=== PATIENT | female | born 1980 | race Caucasian/White ===

== ENCOUNTER 2021-11-30 06:20 | Inpatient (IN) | payer BC ==
[2021-11-30] VITALS (33 sets, daily range): BP systolic 110–146; BP diastolic 66–92; PULSE 57–109; TEMP 97.4–98.3
[~2021-11-30] VITALS: Ht 162.6 cm; Wt 87.3 kg
[~2021-11-30 06:20] MED LIST: MOTRIN 600600 MG/TAB PO; PRENATAL1 TA1 PO
--- NOTE | 2021-11-30 06:45 | NUR ---
PT AMBULATORY TO UNIT FOR SCHEDULED IOL OF TWINS. REPORTS IRREGULAR CONTRACTIONS THROUGHOUT THE NIGHT, BUT HAVE STOPPED THIS MORNING. REPORTS POSITIVE MOVEMENT, DENIES LOF. PT ORIENTED TO LABOR ROOM, PLACED IN A CLEAN GOWN, AND DISCUSSING POC. EFM TRACING CATEGORY 1 STRIP ON BOTH BABIES UPON ARRIVAL. NO CONTRACTIONS AT THIS TIME. WILL CONTINUE WITH POC PER ORDERS.
--- NOTE | 2021-11-30 07:20 | NUR ---
SVE 2-3/50/-2 PER THIS RN. CERVIX THICK AND SLIGHTLY POSTERIOR UPON THIS ASSESSMENT. VERTEX PRESENTATION OF BABY A FELT WITH SVE.
[2021-11-30 07:51] LABS: HEMATOCRIT 40.9 % (37.0-47.0); HEMOGLOBIN 14.3 g/dl (12.5-16.0); MEAN CELL VOLUME 91 fl (80.0-100.0); MEAN CORPUSCULAR HEMOGLOBIN 32 pg (27-31); MEAN CORPUSCULAR HGB CONC 35 g/dl (33.0-37.0); PLATELET COUNT 184 K/mm3 (130-400); RED BLOOD COUNT 4.48 M/mm3 (4.10-5.30); REDCELL DISTRIBUTION WIDTH-CV 12.8 % (11.5-14.5)
[2021-11-30 08:17] LABS: BAND 3 % (0-10); LYMPHOCYTE 11 % (20.0-51.0); NEUTROPHILS 82 % (42.0-75.2)
[2021-11-30 08:18] LABS: PLATELET ESTIMATE NORMAL (NORMAL)
--- NOTE | 2021-11-30 08:30 | NUR ---
DR ABBOTT AT BEDSIDE, DIFFICULTY TRACING EFM DUE TO POSITIONING. THIS NURSE AND DUKE RN AT BEDSIDE ADJUSTING EFM TO ATTEMPT TO MONITOR BABY B. DISCUSSING POC. EDUCATES PT THAT AFTER THIS MORNING PROCEDURE, HE WILL RETURN TO AROM BABY A AND PLACE AN FSE IN ORDER TO ASSIST IN BEING ABLE TO BETTER MONITOR EFM/TOCO. PITOCIN INFUSING AT 8MU, INTERMITTENT TRACING CATEGORY 1 EFM. VORB TO KEEP PITOCIN AT 8MU UNTIL RETURNS AFTER ANOTHER PROCEDURE. PT REPORTS SHE IS ABLE TO FEEL CONTRACTIONS, BUT NOTHING CONSISTENT OR PAINFUL YET. WILL CONTINUE WITH POC PER ORDERS.
[2021-11-30] MEDS ORDERED: FLAGYL500 MG (09:02)
[2021-11-30] MEDS ORDERED: PREDNISONE20 MG PO (09:02)
[2021-11-30] MEDS ORDERED: ZYRTEC 10MG10 MG PO (09:05)
[2021-11-30] MEDS ORDERED: NATURAL IRON65 MG (09:10)
--- NOTE | 2021-11-30 09:32 | NUR ---
0645 PT AMBULATORY TO UNIT FOR IOL. AND MOTHER PRESENT AND SUPPORTIVE. MOM CHANGED INTO NEW GOWN AND IN BED AT THIS TIME. REPORTS POSITIVE MOVEMENT, NO LEAKING OF FLUID, AND STATES SHE HAD CTX THROUGHOUT THE NIGHT "ABOUT 7 MINUTES APART" BUT HAS NOT HAD ANY THIS MORNING. IV, LABS DRAWN, EFM STARTED AT THIS TIME. IV RUNNING LR AND PEN G DUE TO GBS+. PT CHECKED BY VIRGINIA KLEIN. SVE 2-/-2. WILL CONTINUE TO MONITOR.
--- NOTE | 2021-11-30 10:31 | NUR ---
1015: PT TO SITTING POSITION ON EDGE OF BED FOR EPIDURAL PLACEMENT. LR BOLUS INFUSING PER PROTOCOL. VITAL SIGNS STABLE. EFM TRACING CATEGORY 1 FOR BABY #1 & BABY #2. 1031: TEST DOSE PER ELIZA ORELLANA. PT TOLERATED PROCEDURE WELL.
--- NOTE | 2021-11-30 10:57 | NUR ---
AT BEDSIDE. BEDSIDE ULTRASOUND PERFORMED, VERTEX/VERTEX PRESENTATION CONFIRMED. SVE /-2. 1057: AROM WITH CLEAR FLUID, PT TOLERATED PROCEDURE WELL. EFM CATEGORY 1 TRACING FOR BABY A AND BABY B AT THIS TIME. FSE PLACED FOLLOWING AROM PER . VORB TO CONTINUE INCREASING PITOCIN PER PROTOCOL UNTIL A MAX OF 20MU.
--- NOTE | 2021-11-30 10:57 | NUR ---
AT BEDSIDE. SVE /-2. 1057: AROM WITH CLEAR FLUID, PT TOLERATED PROCEDURE WELL. EFM CATEGORY 1 TRACING FOR BOTH BABIES AT THIS TIME.
--- NOTE | 2021-11-30 12:30 | NUR ---
1230: THIS NURSE AT BEDSIDE. PT DENIES PAIN, DENIES PRESSURE, CONTRACTIONS Q2-2.5 MINUTES APART. CATEGORY 1 EFM TRACING FOR BOTH BABIES AT THIS TIME. VITAL SIGNS STABLE. PT PLACED IN DOMINIQUE POSITION PER REQUEST TO HELP RELIEVE LOWER BACK ACHES. 1245: PT CALLS THIS NURSE TO BEDSIDE. C/O SUDDEN ONSET INTENSE RECTAL PRESSURE AND URGE TO "POOP". SVE COMPLETE/+4. PITOCIN SHUT OFF. EPIDURAL BOLUSED. NOTIFIED IMMEDIATELY. DUKE COLEMAN (CHARGE NURSE) TO BEDSIDE TO ASSIST. TEJAL HAMILTON PREPARES DELIVERY TABLE AT THIS TIME. 1250: NURSE ATTENDED OF BABY A PER VIRGINIA WALL. VERTEX PRESENTATION. CORD CLAMPED PER PROTOCOL. CARE OF ASSUMED BY VIRGINIA ANTUNEZ. STRONG CRY NOTED UPON DELIVERY. 1256: LARGE AMOUNT OF BLEEDING AT THIS TIME FOLLOWED BY OF PLACENTA #1 PER DUKE COLEMAN. HEART TONES OBTAINED/MONITORED CLOSELY ON BABY B CONTINUED. 1300: NURSE ATTENDED OF BABY B PER VIRGINIA WALL. FOOTLING BREECH PRESENTATION UPON DELIVERY. CORD CLAMPED PER PROTOCOL. CARE OF INFANT ASSUMED BY VIRGINIA ANTUNEZ. STRONG CRY NOTED UPON DELIVERY. ENTERED ROOM AT THIS TIME. DENIES NEED FOR CORD GASES. BOTH INFANTS TO WARMER. STABLE AT THIS TIME. 1302: OF PLACENTA #2 AT THIS TIME PER . PITOCIN INFUSING PER PROTOCOL. BEGINS REPAIR OF 1ST DEGREE LACERATION. LOCHIA MODERATE. FUNDUS FIRM AT UMBILICUS. 1310: FUNDUS REMAINS FIRM. LOCHIA SCANT AT THIS TIME. NO CLOTS NOTED. ICE PACK TO PERINEUM. VITAL SIGNS STABLE. PT DENIES PAIN OR NEEDS AT THIS TIME. WILL CONTINUE WITH CARES PER PROTOCOL.
--- NOTE | 2021-11-30 16:45 | NUR ---
PT REPORTS FULL SENSATION TO BLE. ABLE TO RAISE AND HOLD LEGS X5 SECONDS EACH. VITAL SIGNS REMAIN STABLE. LOCHIA SCANT, FUNDUS FIRM AT UMBILICUS WITH MASSAGE. ASSISTED TO EDGE OF BED IN SITTING POSITION FOR EPIDURAL REMOVAL. PT TOLERATED PROCEDURE WELL. DENIES DIZZINES. ASSISTED TO STANDING POSITION AND ABLE TO BEAR FULL WEIGHT. PT AMBULATORY TO RESTROOM WITH SLOW STEADY GAIT. VOIDS 500C BLOOD TINGED URINE. LOCHIA REMAINS SCANT, NO CLOTS WITH VOID. BROOKS CARE, NEW GOWN, MESH UNDERWEAR, AND PERINEAL ICE PACK/PAD ALL PROVIDED FOR PT. PT TRANSFERS FROM TOILET INTO WHEELCHAIR TO MOVE TO ROOM 218. TOLERATED ACTIVITY WELL. WILL RESUME WITH CARES PER PROTOCOL.
[2021-12-01 00:55] VITALS: BP 121/76; PULSE 60; TEMP 97.5
[2021-12-01 08:00] VITALS: BP 125/87; PULSE 80; TEMP 98.5
[2021-12-01] MEDS ORDERED: IBU800 M1 PO (09:53)
[2021-12-01 16:00] VITALS: BP 121/80; PULSE 68; TEMP 97.9
--- NOTE | 2021-12-01 16:00 | NUR ---
Pt call RN to room and states she has passed a clot in toilet. Small quarter size clot noted. VSS. Fundus firm, midline, and bleeding scant. Denies any dizziness/lightheadedness. Expected lochia reviewed. Reinforced when to call md for lochia.
== END 2021-12-01 17:00 | disposition home or self-care (01) | DRG 807 ==
LOC: LDR 06:20 → OB 16:45
PROVIDERS: ADMIT Obstetrics & Gynecology
PROC: 10E0XZZ Delivery of Products of Conception, External Approach (ICD-10-PCS; principal; 2021-11-30)
PROC: 10D17Z9 Manual Extraction of Products of Conception, Retained, Via Natural or Artificial Opening (ICD-10-PCS; 2021-11-30)
PROC: 10E0XZZ Delivery of Products of Conception, External Approach (ICD-10-PCS; 2021-11-30)
PROC: 0HQ9XZZ Repair Perineum Skin, External Approach (ICD-10-PCS; 2021-11-30)
PROC: 10907ZC Drainage of Amniotic Fluid, Therapeutic from Products of Conception, Via Natural or Artificial Opening (ICD-10-PCS; 2021-11-30)
DX: O99.824 Streptococcus B carrier state complicating childbirth (principal); Z37.2 Twins, both liveborn; O99.12 Other diseases of the blood and blood-forming organs and certain disorders involving the immune mechanism complicating childbirth; D69.6 Thrombocytopenia, unspecified; O73.1 Retained portions of placenta and membranes, without hemorrhage; O30.043 Twin pregnancy, dichorionic/diamniotic, third trimester; O70.0 First degree perineal laceration during delivery; Z3A.37 37 weeks gestation of pregnancy
CPT/HCPCS: J2540; J2590; J7120; J7512

== ENCOUNTER → 2021-12-09 | Outpatient (CLI) | payer BC ==
[~2021-12-09] MED LIST changes: +FLAGYL500 MG; +IBU800 M1 PO; +NATURAL IRON65 MG; +PREDNISONE20 MG PO; +ZYRTEC 10MG10 MG PO
--- NOTE | 2021-12-09 15:21 | NUR ---
Ladonna Chew (Jenny) presents for outpatient consult with twins, Salo and Pavithra Chew to teach Salo how to latch and evaluate . She is accompanied by her spouse, Frantz Chew. The twins were born at 37 weeks gestation on [birth year]. Salo weighed 5#5oz (2410 gms). He weighed 5#1oz at his doctor appt. 6 days ago. He also has a tongue tether released at that appt, he has good tongue extension, healing is noted, but there is still a little palpable tissue when the finger is slipped under the tongue. Salo has not breastfed well so has been bottle fed, he drinks 1.5 to 2.5oz per feeding which is mostly EBM but he does need about 4oz formula daily. Today Salo weighs 5# 5.4oz (2422 gms). He easily latches to the left breast and with a little expression of milk into his mouth he nurses fairly well. After nursing intermittently for 30 minutes Salo has a weight gain of 30 gms. He is provided a bottle of formula and drinks and additional 30 ml. Pavithra weighed 5# 7.5oz (2480 gms) at , and 5# 1oz at the doctor 6 days ago. She breastfeeds and has upto an ounce of supplement after about half of her feedings. Today Pvaithra weighs 5# 4.2oz (2388 gms). She is attached while Salo is nursing and is eager, having good swallows and sustained effort through the feeding. She nurses ~15-20 minutes. Pavithra had a weight gain of 64 gms (2.3oz) after feeding and was content. Discussion re: improving milk supply by power pumping and herbal supplements, as well as moving forward with BF Salo. POC: Continue both babies, supplement prn after BF, expect at least 1oz for Salo. Continue pumping each feeding, incorporating power pumping. F/U: With Dr. Johnson this week. Pt to contact this LC to discuss further follow up with . Questions invited and answered.
== END ==
LOC: LAC 06:14
DX: Z39.1 Encounter for care and examination of lactating mother (principal); Z71.89 Other specified counseling